=== PATIENT | female | born 1925 | race Two or more races ===

== ENCOUNTER 2016-07-09 12:44 | Emergency (ER) | payer OTHER ==
[~2016-07-09] VITALS: Ht 157.5 cm; Wt 54.4 kg
[~2016-07-09 12:44] MED LIST: DILT180C88 PO; SERT-160 PO
[2016-07-09 14:00] VITALS: BP 150/90
[2016-07-09] MEDS ORDERED: traMADol HCL 50 MG TAB PO ONE (15:00)
== END 2016-07-09 15:45 | disposition home or self-care (01) ==
LOC: EDBD 12:44 → ER 12:50
DX: S16.1XXA Strain of muscle, fascia and tendon at neck level, initial encounter (principal); M79.1 Myalgia; E78.5 Hyperlipidemia, unspecified; I10 Essential (primary) hypertension; M54.30 Sciatica, unspecified side; Z79.899 Other long term (current) drug therapy; W05.0XXA Fall from non-moving wheelchair, initial encounter; Y93.89 Activity, other specified; Y99.8 Other external cause status; Y92.89 Other specified places as the place of occurrence of the external cause
CPT/HCPCS: 70450; 72125; 72128

== ENCOUNTER 2016-08-06 18:20 | Emergency (ER) | payer OTHER ==
[~2016-08-06] VITALS: Ht 154.9 cm; Wt 77.1 kg
[2016-08-06] MEDS ORDERED: DERMOPLAST 60ML BOTTLE TOP ONE (19:30)
[2016-08-07 08:50] VITALS: BP 123/90
== END 2016-08-06 20:31 | disposition home or self-care (01) ==
LOC: EDBD 18:20 → ER 18:24
DX: S01.81XA Laceration without foreign body of other part of head, initial encounter (principal); E78.5 Hyperlipidemia, unspecified; I10 Essential (primary) hypertension; W18.39XA Other fall on same level, initial encounter; Y93.01 Activity, walking, marching and hiking; Y92.89 Other specified places as the place of occurrence of the external cause; Y99.8 Other external cause status
CPT/HCPCS: 12011; 70450; 72125; 93005

== ENCOUNTER 2016-09-11 07:43 | Emergency (ER) | payer OTHER, MEDICAID ==
[~2016-09-11] VITALS: Ht 154.9 cm; Wt 59.0 kg
[2016-09-11 08:53] LABS: Basophils # (auto) 0 uL; Basophils % (auto) 0.8 % (0.0-2.0); CONDITION Y; DEFINITIVE SEE PRINTOUT; Eosinophils # (auto) 0.2 uL; Eosinophils % (auto) 3.7 % (0.0-7.0); Hematocrit 33.8 % (36.0-46.0); Lymphocytes # (auto) 2.1 uL; Lymphocytes % (auto) 40.1 % (10.0-50.0); Mean Corpuscular Hemoglobin 26.9 pg (28.0-32.0); Mean Corpuscular Hgb Conc. 32.5 g/dL (32.0-36.0); Mean Corpuscular Volume 82.8 fL (80.0-100.0); Mean Platelet Volume 8.6 fL (7.4-10.4); Monocytes # (auto) 0.6 uL; Monocytes % (auto) 10.5 % (0.0-12.0); Neutrophils # (auto) 2.4 uL; Neutrophils % (auto) 44.9 % (37.0-80.0); Platelet Count (auto) 242 10^3/uL (140-450); Red Cell Distribution Width 16.8 % (11.6-16.0); White Blood Cell 5.4 10^3/uL (4.4-10.8)
[2016-09-11 09:21] LABS: Albumin 2.9 g/dL (3.4-5.0); Alkaline Phosphatase 63 U/L (45-117); Anion Gap 8 (5-15); Aspartate Aminotransferase 17 U/L (15-37); Bilirubin, Total 0.2 mg/dL (0.2-1.0); Blood Urea Nitrogen 21 mg/dL (7-18); Calcium 9.2 mg/dL (8.5-10.1); Carbon Dioxide 27 mmol/L (21-32); Chloride 105 mmol/L (98-107); GFR African American 94 mL/min; GFR Non-African American 77 mL/min; Glucose 96 mg/dL (74-106); Sodium 140 mmol/L (136-145); Total Protein 8.1 g/dL (6.4-8.2)
[2016-09-11 09:22] LABS: Potassium 2.9 mmol/L (3.5-5.1)
[2016-09-11] MEDS ORDERED: SODIUM CHLORIDE 0.9% 1,000 ML IV ONE (10:17)
[2016-09-11] MEDS ORDERED: POTASSIUM CHL 10% (20 MEQ/15ML) ORAL SOLN PO ONE (11:30)
[2016-09-11 12:41] VITALS: BP 166/92
[2016-09-11] MEDS ORDERED: ACETAMINOPHEN 650 mg PER 20 mL UD ONE (13:11)
[2016-09-11] MEDS ORDERED: ACETAMINOPHEN 650 mg PER 20 mL UD PO ONE (13:15)
== END 2016-09-11 13:34 | disposition home or self-care (01) ==
LOC: EDUNIT# 07:43 → ER 07:43 → EDBD 07:43 → ER 13:34
DX: I10 Essential (primary) hypertension (principal); E78.5 Hyperlipidemia, unspecified; E87.6 Hypokalemia
CPT/HCPCS: 36415; 70450; 71010; 80053; 84484; 85025; 93005; 96360; 96361; 99285; J7030